=== PATIENT | female | born 1980 | race Caucasian/White ===

== ENCOUNTER 2018-03-25 21:02 | Emergency (ER) | payer OTHER ==
[2018-03-25 21:10] VITALS: BP 148/98; PULSE 66; RESP 20; TEMP 98.3
[2018-03-25] MEDS ORDERED: KETOROLAC 30 MG/ML 1 ML VIAL IM STA (21:28)
[2018-03-25] MEDS ORDERED: ORPHENADRINE 30 MG/ML 2 ML VIAL IM STA (21:28)
--- NOTE | 2018-03-25 21:38 | ED ---
General Adult HPI - General Chief complaint: Extremity Injury, Upper Stated complaint: Neck & Shoulder Pain Time Seen by Provider: 03/25/18 21:11 Source: patient, RN notes reviewed Mode of arrival: ambulatory Limitations: no limitations - History of Present Illness Initial comments: This is a 37-year-old female who presents to the emergency department with chief complaint of neck and right shoulder pain. Patient states 3 days ago she was lying in bed and rolled over. She states that she had sudden onset of right -sided neck and shoulder pain. She describes the pain as a "tightness." She states it feels like a "muscle that while not loosen." She reports increase of pain with tilting the head to the left and rotating to the right. She reports pain is also increased with abduction of the shoulder. She feels a pulling sensation extending from the neck to the shoulder while performing these movements. Patient denies any specific injuries or trauma. Denies falls. Denies fevers or chills, chest pain or shortness of breath, dizziness or headache, vision changes or weakness. Denies any numbness or tingling or radiation of pain down the arms. - Related Data Previous Rx's Medication Instructions Recorded Naproxen Sodium [Anaprox] 275 mg PO Q8HR #30 tab 03/24/15 Cyclobenzaprine [Flexeril] 10 mg PO TID #15 tab 03/25/18 Ibuprofen 600 mg PO Q6HR #20 tablet 03/25/18 Allergies Allergy/AdvReac Type Severity Reaction Status Date / Time codeine AdvReac Nausea & Verified 03/25/18 21:10 Vomiting Review of Systems ROS Statement: Those systems with pertinent positive or pertinent negative responses have been documented in the HPI. ROS Other: All systems not noted in ROS Statement are negative. Past Medical History Past Medical History: No Reported History History of Any Multi-Drug Resistant Organisms: None Reported Past Surgical History: Cholecystectomy, Tubal Ligation Past Psychological History: Depression Smoking Status: Current every day smoker Past Alcohol Use History: None Reported Past Drug Use History: None Reported General Exam - General Exam Comments Initial Comments: General: Awake and alert, well-developed; in no apparent distress. HEENT: Head atraumatic, normocephalic. Pupils are equal, round and reactive to light. Extraocular movements intact. Oropharynx moist without erythema or exudate. Neck: Supple. Normal ROM. No midline or bony point tenderness. Pain is elicited with tilting of the head to the left and rotating the neck to the right. There is tenderness on palpation of the right sternocleidomastoid and platysma muscle extending to the shoulder and clavicle. Cardiovascular: Regular rate and rhythm. No murmurs, rubs or gallops. Chest symmetrical. Radial pulses are 2+ equal and palpable bilaterally. Respiratory: Lungs clear to auscultation bilaterally. No wheezes, rales or rhonchi. Normal respiratory effort with no use of accessory muscles. Musculoskeletal: Normal ROM, strength 5/5 bilateral upper and lower extremities. Ambulating normally. Normal training director strength bilaterally. Skin: [place], warm and dry without rashes or lesions. Neurological: Alert and oriented x3. CN II-XII grossly intact. Speech is fluent and answers are appropriate. No focal neuro deficits. Psychiatric: Normal mood and affect. No overt signs of depression or anxiety noted. Limitations: no limitations Course Vital Signs 03/25/18 21:08 Temperature 98.3 F Pulse Rate 66 Respiratory 20 Rate Blood Pressure 148/98 O2 Sat by Pulse 97 Oximetry Medical Decision Making - Medical Decision Making This is a 37-year-old female presents to the emergency department with chief complaint of neck and shoulder pain. Patient reports acute onset of right sided neck pain while rolling over in bed 3 days ago. There is tenderness over the sternocleidomastoid and platysmal muscle on the right side. Pain is elicited with movement of the neck and shoulder. Patient is neurovascularly intact. She denies any falls, injuries or trauma. No bony point tenderness. Based on history and physical examination, there is high suspicion for muscle strain. She will be provided with prescriptions for Flexeril and Motrin. Recommend using a heating pad but being careful not to burn herself. Patient's vital signs are stable and she is in no acute distress. She will be discharged home at this time. She is in agreement with plan and voices understanding. All questions were answered. Disposition Clinical Impression: Neck muscle strain Disposition: HOME SELF-CARE Condition: Good Instructions: Acute Neck Pain (ED) Additional Instructions: Please take medications as prescribed. Please follow up with primary care provider within 1-2 days. Return to emergency department if symptoms should worsen or any concerns arise. Prescriptions: Cyclobenzaprine [Flexeril] 10 mg PO TID #15 tab Ibuprofen 600 mg PO Q6HR #20 tablet Is patient prescribed a controlled substance at d/c from ED?: No Referrals: Joan May MD [Primary Care Provider] - 1-2 days Time of Disposition: 21:38
== END 2018-03-25 21:40 | disposition home or self-care (01) ==
LOC: EC 21:02
DX: S16.1XXA Strain of muscle, fascia and tendon at neck level, initial encounter (principal); M25.511 Pain in right shoulder; F17.200 Nicotine dependence, unspecified, uncomplicated; Z88.5 Allergy status to narcotic agent; X50.9XXA Other and unspecified overexertion or strenuous movements or postures, initial encounter; Y93.89 Activity, other specified
CPT/HCPCS: 99283; 96372 ×2; J2360; J1885